=== PATIENT | female | born 1980 | race Caucasian/White ===

== ENCOUNTER 2017-01-07 14:45 | Emergency (ER) | payer SELFPAY ==
[~2017-01-07] VITALS: Ht 167.6 cm; Wt 58.7 kg
[2017-01-07 16:32] VITALS: BP 122/79
== END 2017-01-07 17:11 | disposition home or self-care (01) ==
LOC: ED 16:47
DX: O03.9 Complete or unspecified spontaneous abortion without complication (principal)
CPT/HCPCS: 36415; 76801; 81001; 84702; 85025; 86901